=== PATIENT | male | born 1970 | race Two or more races ===

== ENCOUNTER 2018-12-31 17:30 | Emergency (ER) | payer BC ==
[~2018-12-31] VITALS: Ht 170.2 cm; Wt 79.4 kg
[2018-12-31] MEDS ORDERED: DEXAMETHASONE SOD PHOS 10 MG/1 ML VIAL IV ONE (17:45)
[2018-12-31] MEDS ORDERED: DIPHENHYDRAMINE HCL INJ 50 MG/ML VIAL IV ONE (17:45)
[2018-12-31 18:43] VITALS: BP 132/82
== END 2018-12-31 18:40 | disposition home or self-care (01) ==
LOC: FSED 17:30
DX: T63.461A Toxic effect of venom of wasps, accidental (unintentional), initial encounter (principal)
CPT/HCPCS: 96374; 96375; 99283; J1100; J1200